=== PATIENT | male | born 1945 | race Caucasian/White ===

== ENCOUNTER 2019-02-09 23:36 | Inpatient (IN) | payer MEDICARE ==
[~2019-02-09] VITALS: Ht 177.8 cm; Wt 130.2 kg
[~2019-02-09 23:36] MED LIST: ALLO300T PO; AMLO1CAP7 PO; ATOR20TA37 PO; BENA20TA54 PO; CHOL2000 PO; DILT120C80 PO; FENO160T PO; METF500T17 PO; MULT-208 PO; OMEG1CAP48 PO; Oxygen INH; WARF1TAB PO
--- NOTE | 2019-02-10 00:44 | NUR ---
PT PRESENTS TO ED C/O A LUMP APPEARING TONIGHT "ALL OF A SUDDEN" AT 1700 W/ ASSOCIATED PAIN. STATES HX OF SIMILAR S/S FROM A HERNIA THAT WAS SURGICALLY REDUCED/REPAIRED. STATES PAIN IN LOWER QUADRANT BILATERAL. MONITORING APPLIED. CALL LIGHT WITHIN REACH. AWAITING MD ASSESSMENT.
[2019-02-10] MEDS ORDERED: HYDROmorphone 2 MG/ML, 1ML IVPush PRN (01:30)
[2019-02-10] MEDS ORDERED: ONDANSETRON 2MG/ML, 2ML IVPush ONE (01:30)
[2019-02-10] MEDS ORDERED: ONDANSETRON 2MG/ML, 2ML ONE ×2 (01:32→06:11)
[2019-02-10] MEDS ORDERED: HYDROmorphone 2 MG/ML, 1ML ONE ×2 (01:32→07:30)
[2019-02-10 01:43] LABS: BASOPHILS # (AUTO) 0.02 x10^3/uL (0-0.1); BASOPHILS % (AUTO) 0 % (0-1); EOSINOPHILS # (AUTO) 0.04 x10^3/uL (0-0.4); EOSINOPHILS % (AUTO) 1 % (1-7); LYMPHOCYTES # (AUTO) 0.95 x10^3/uL (1-3.4); LYMPHOCYTES % (AUTO) 11 % (22-44); MD NO; MEAN CORPUSCULAR HGB CONC 34.3 g/dL (33.2-36.2); MEAN CORPUSCULAR VOLUME 90.5 fL (81-97); MEAN PLATELET VOLUME 10.2 fL (7.4-10.4); MONOCYTES # (AUTO) 0.34 x10^3/uL (0.2-0.8); MONOCYTES % (AUTO) 4 % (2-9); NEUTROPHILS # (AUTO) 7.42 x10^3/uL (1.8-6.8); NEUTROPHILS % (AUTO) 85 % (42-75); PLATELET COUNT 139 x10^3/uL (130-400); RED CELL DISTRIBUTION WIDTH 14.8 % (9.4-14.8)
--- NOTE | 2019-02-10 01:53 | NUR ---
STATES A DECREASE IN PAIN AT THIS TIME. AWAITING LAB RESULTS FOR CT.
[2019-02-10 01:55] LABS: ALANINE AMINOTRANSFERASE 39 U/L (12-78); ALBUMIN 3.9 g/dL (3.4-5.0); ANION GAP 6 mmol/L (5-15); CALCIUM 9.2 mg/dL (8.5-10.1); CHLORIDE 109 mmol/L (98-107); CREATININE 1.14 mg/dL (0.7-1.3)
[2019-02-10 01:57] LABS: ALKALINE PHOSPHATASE 78 U/L (45-117); BILIRUBIN,TOTAL 0.7 mg/dL (0.2-1.0); TOTAL PROTEIN 7.1 g/dL (6.4-8.2)
--- NOTE | 2019-02-10 02:12 | NUR ---
Pt to CT at this time.
[2019-02-10 02:19] LABS: INTERNATIONAL NORMALIZED RATIO 1.06 (0.93-1.1); PROTHROMBIN TIME 11.1 Seconds (9.6-11.5)
[2019-02-10] MEDS ORDERED: OMNIPAQUE 350 MG/ML, 100ML BOTTLE ONE (02:39)
[2019-02-10] MEDS ORDERED: APIX5TAB PO (02:40)
--- NOTE | 2019-02-10 02:41 | NUR ---
SPO2 NOT FUNCTIONING APPROPRIATELY. THIS RN ATTEMPTED TO TROUBLESHOOT. STILL NOT WORKING. PORTABLE VITALS MACHINE PLACED AT BEDSIDE. PT GIVEN URINAL PRE REQUEST. NO FURTHER REQUESTS.
[2019-02-10] MEDS: SODIUM CHLORIDE 0.9% 1,000 ML IV SCH ×2 (03:29→09:36)
--- NOTE | 2019-02-10 03:29 | NUR ---
THIS RN GAVE REPORT TO OR NURSE. OR NURSE STATES PT TO BE PICKED UP APPROXIMATELY 415 AM.
[2019-02-10] MEDS ORDERED: morphine SULFATE 10 MG/ML, 1ML IVPush PRN (03:30)
[2019-02-10] MEDS ORDERED: ONDANSETRON 2MG/ML, 2ML IVPush PRN (03:30)
[2019-02-10] MEDS ORDERED: BUPIVACAINE/EPI 0.5% 1:200K ONE (04:12)
[2019-02-10] MEDS ORDERED: BACITRACIN 50,000 UNIT ONE (04:12)
[2019-02-10] MEDS ORDERED: FENTANYL PF 250 MCG/5ML ONE (05:03)
[2019-02-10] MEDS ORDERED: PHENYLEPHRINE 10 MG/ML ONE (05:10)
[2019-02-10] MEDS ORDERED: BUPIVACAINE/EPI 0.5% 1:200K INFIL ONE (05:27)
[2019-02-10] MEDS ORDERED: BACITRACIN 50,000 UNIT IRRIG ONE (05:47)
[2019-02-10] MEDS ORDERED: METOPROLOL 1 MG/ML, 5ML IV PRN (06:00)
[2019-02-10] MEDS ORDERED: PROMETHAZINE 25 MG/ML, 1ML IV PRN (06:00)
[2019-02-10] MEDS ORDERED: HALOPERIDOL 5 MG/ML IV PRN ×2 (06:00)
[2019-02-10] MEDS ORDERED: hydrALAzine 20 MG/ML, 1ML IV PRN (06:00)
[2019-02-10] MEDS ORDERED: DIPHENHYDRAMINE 50 MG/ML, 1ML IVPush PRN (06:00)
[2019-02-10] MEDS ORDERED: MEPERIDINE/PF 25MG/0.5ML IVPush PRN (06:00)
[2019-02-10] MEDS ORDERED: PROCHLORPERAZINE 5 MG/ML, 2ML IV PRN (06:00)
[2019-02-10] MEDS ORDERED: OXYcodone 5 MG/5 ML ORAL.SOL UDC PO PRN (06:00)
[2019-02-10] MEDS ORDERED: PROPOFOL 10 MG/ML, 20ML ONE (06:11)
[2019-02-10] MEDS ORDERED: SUCCINYLCHOLINE 20 MG/ML, 10ML ONE (06:11)
[2019-02-10] MEDS ORDERED: ROCURONIUM 10MG/ML,5ML ONE (06:11)
[2019-02-10] MEDS ORDERED: DEXAMETHASONE 4 MG/ML, 1ML ONE (06:11)
[2019-02-10] MEDS ORDERED: NEOSTIGMINE 1 MG/ML, 10ML ONE (06:11)
[2019-02-10] MEDS ORDERED: CEFAZOLIN 1,000 MG ONE (06:11)
[2019-02-10] MEDS ORDERED: GLYCOPYRROLATE 0.2MG/1ML, 5ML ONE (06:11)
[2019-02-10] MEDS ORDERED: FENTANYL PF 100 MCG/2ML ONE (06:34)
[2019-02-10] MEDS: FENTANYL PF 100 MCG/2ML IV PRN ×4 (06:35→07:05)
[2019-02-10] MEDS ORDERED: METOPROLOL 1 MG/ML, 5ML ONE (06:42)
[2019-02-10] MEDS: LABETALOL 5MG/ML, 20ML IV PRN ×2 (06:47→06:53)
[2019-02-10] MEDS ORDERED: OXYcodone 5 MG/5 ML ORAL.SOL UDC ONE (06:51)
[2019-02-10] MEDS: INSULIN LISPRO 100 UNITS/ML, PEN SQ-INSULIN SCH ×4 (07:00→20:47)
[2019-02-10] MEDS: HYDROmorphone 2 MG/ML, 1ML IVPush PRN ×2 (07:30→07:50)
[2019-02-10 09:00] VITALS: BP 122/80
[2019-02-10] MEDS: HYDROcodone/APAP 5/325 TABLET PO PRN ×5 (09:36→20:42)
[2019-02-10] MEDS ORDERED: METF500T27 PO (10:40)
[2019-02-10] MEDS: DILTIAZEM 120 MG CAP.ER.24H PO SCH (12:56)
[2019-02-10] MEDS: BENAZEPRIL 20 MG TABLET PO SCH (12:57)
[2019-02-10 14:00] VITALS: BP 142/79
[2019-02-10 19:04] VITALS: BP 151/89
[2019-02-10] MEDS: OMEGA-3/FISH OIL CAPSULE PO SCH (19:55)
[2019-02-10 20:39] VITALS: BP 139/78
[2019-02-10] MEDS: ATORVASTATIN 20 MG TABLET PO SCH (20:42)
[2019-02-11] MEDS: SODIUM CHLORIDE 0.9% 1,000 ML IV SCH ×3 (00:01→22:23)
[2019-02-11 00:22] VITALS: BP 116/75
[2019-02-11 05:05] LABS: BASOPHILS # (AUTO) 0.03 x10^3/uL (0-0.1); BASOPHILS % (AUTO) 0 % (0-1); EOSINOPHILS # (AUTO) 0.14 x10^3/uL (0-0.4); EOSINOPHILS % (AUTO) 2 % (1-7); LYMPHOCYTES # (AUTO) 1.51 x10^3/uL (1-3.4); LYMPHOCYTES % (AUTO) 20 % (22-44); MD NO; MEAN CORPUSCULAR HEMOGLOBIN 30.9 pg (27.5-34.5); MEAN CORPUSCULAR HGB CONC 34.1 g/dL (33.2-36.2); MEAN CORPUSCULAR VOLUME 90.7 fL (81-97); MEAN PLATELET VOLUME 9.8 fL (7.4-10.4); MONOCYTES # (AUTO) 0.64 x10^3/uL (0.2-0.8); MONOCYTES % (AUTO) 8 % (2-9); NEUTROPHILS # (AUTO) 5.38 x10^3/uL (1.8-6.8); NEUTROPHILS % (AUTO) 70 % (42-75); PLATELET COUNT 130 x10^3/uL (130-400); RED BLOOD COUNT 4.58 x10^6/uL (4.38-5.82); RED CELL DISTRIBUTION WIDTH 15.4 % (9.4-14.8)
[2019-02-11 05:13] LABS: ANION GAP 6 mmol/L (5-15); CHLORIDE 108 mmol/L (98-107)
[2019-02-11 06:50] VITALS: BP 111/69
[2019-02-11] MEDS: OMEGA-3/FISH OIL CAPSULE PO SCH (07:17)
[2019-02-11] MEDS: INSULIN LISPRO 100 UNITS/ML, PEN SQ-INSULIN SCH ×4 (07:25→20:20)
[2019-02-11] MEDS: ALLOPURINOL 300 MG TABLET PO SCH (09:29)
[2019-02-11] MEDS: BENAZEPRIL 20 MG TABLET PO SCH (09:29)
[2019-02-11] MEDS: DILTIAZEM 120 MG CAP.ER.24H PO SCH (09:29)
[2019-02-11] MEDS: CHOLECALCIFEROL 1,000 UNIT TABLET PO SCH (09:30)
[2019-02-11] MEDS: MULTIVITAMIN 1 TABLET PO SCH (09:30)
[2019-02-11] MEDS: KETOROLAC 30 MG/1 ML IVPush SCH ×3 (09:30→21:19)
[2019-02-11 15:24] VITALS: BP 126/77
[2019-02-11 19:07] VITALS: BP 127/70
[2019-02-11] MEDS: ATORVASTATIN 20 MG TABLET PO SCH (21:19)
[2019-02-12 01:48] VITALS: BP 124/80
[2019-02-12] MEDS: KETOROLAC 30 MG/1 ML IVPush SCH ×4 (03:41→21:03)
[2019-02-12 06:57] VITALS: BP 125/81
[2019-02-12] MEDS: INSULIN LISPRO 100 UNITS/ML, PEN SQ-INSULIN SCH ×4 (07:35→21:00)
[2019-02-12] MEDS: DILTIAZEM 120 MG CAP.ER.24H PO SCH (09:45)
[2019-02-12] MEDS: DOCUSATE 100 MG CAPSULE PO SCH ×2 (09:45→21:02)
[2019-02-12] MEDS: MULTIVITAMIN 1 TABLET PO SCH (09:46)
[2019-02-12] MEDS: CHOLECALCIFEROL 1,000 UNIT TABLET PO SCH (09:46)
[2019-02-12] MEDS: BENAZEPRIL 20 MG TABLET PO SCH (09:46)
[2019-02-12] MEDS: ALLOPURINOL 300 MG TABLET PO SCH (09:46)
[2019-02-12] MEDS: OMEGA-3/FISH OIL CAPSULE PO SCH ×2 (09:46→21:02)
[2019-02-12 12:53] VITALS: BP 117/81
[2019-02-12 19:34] VITALS: BP 130/84
[2019-02-12] MEDS: ATORVASTATIN 20 MG TABLET PO SCH (21:02)
[2019-02-13] MEDS: KETOROLAC 30 MG/1 ML IVPush SCH ×3 (03:07→15:30)
[2019-02-13 03:15] VITALS: BP 116/78
[2019-02-13] MEDS: INSULIN LISPRO 100 UNITS/ML, PEN SQ-INSULIN SCH ×3 (06:10→15:56)
[2019-02-13 08:34] VITALS: BP 115/75
[2019-02-13] MEDS: CHOLECALCIFEROL 1,000 UNIT TABLET PO SCH (08:42)
[2019-02-13] MEDS: ALLOPURINOL 300 MG TABLET PO SCH (08:43)
[2019-02-13] MEDS: BENAZEPRIL 20 MG TABLET PO SCH (08:43)
[2019-02-13] MEDS: OMEGA-3/FISH OIL CAPSULE PO SCH (08:43)
[2019-02-13] MEDS: MULTIVITAMIN 1 TABLET PO SCH (08:43)
[2019-02-13] MEDS: DOCUSATE 100 MG CAPSULE PO SCH (08:43)
[2019-02-13] MEDS: DILTIAZEM 120 MG CAP.ER.24H PO SCH (08:43)
[2019-02-13 12:50] VITALS: BP 144/75
[2019-02-13] MEDS ORDERED: SENNA/DOCUSATE TABLET PO SCH (14:30)
[2019-02-13] MEDS ORDERED: OXYC-302 PO (14:40)
[2019-02-13] MEDS ORDERED: DOCU-131 PO (14:40)
[2019-02-13] MEDS ORDERED: SENN-177 PO (14:40)
[2019-02-13 16:00] VITALS: BP 138/68
[2019-02-13] MEDS ORDERED: APIXABAN 5 MG TABLET PO SCH (21:00)
[2019-03-07] MEDS ORDERED: METR-90 PO (19:25)
[2019-03-07] MEDS ORDERED: CIPR500T3 PO (19:25)
[2019-03-07] MEDS ORDERED: METF500T17 PO (19:25)
== END 2019-02-13 16:47 | disposition home or self-care (01) | DRG 353 ==
LOC: ED 02-10 03:21 → EDIP 02-10 03:22 → 5SO 02-10 08:38 → 4NOR 02-12 12:42
PROVIDERS: ADMIT Internal Medicine; ATTEND Internal Medicine
PROC: 0WUF0JZ Supplement Abdominal Wall with Synthetic Substitute, Open Approach (ICD-10-PCS; principal; 2019-02-10 05:00)
DX: K43.0 Incisional hernia with obstruction, without gangrene (principal); N17.0 Acute kidney failure with tubular necrosis; D68.69 Other thrombophilia; E11.9 Type 2 diabetes mellitus without complications; E78.5 Hyperlipidemia, unspecified; I10 Essential (primary) hypertension; I48.2 Chronic atrial fibrillation; G47.33 Obstructive sleep apnea (adult) (pediatric); K22.70 Barrett's esophagus without dysplasia; M1A.9XX0 Chronic gout, unspecified, without tophus (tophi); Z79.01 Long term (current) use of anticoagulants; Z87.891 Personal history of nicotine dependence
CPT/HCPCS: 36415; 71045; 71046; 74177; 80048; 80053; 82962; 83690; 85025; 85610; 85730; 93005; 96374; 96375; C1729; G0378; J0690; J1100; J1170; J1885; J2405; J2704; J2710; J3010; Q9967; C1781; J0330; J2370; J7030

== ENCOUNTER 2019-03-04 23:49 | Emergency (ER) | payer MEDICARE ==
[~2019-03-04] VITALS: Ht 177.8 cm; Wt 122.4 kg
[~2019-03-04 23:49] MED LIST changes: +APIX5TAB PO; +DOCU-131 PO; +METF500T27 PO; +OXYC-302 PO; +SENN-177 PO
--- NOTE | 2019-03-05 00:23 | NUR ---
ASSUMED CARE OF PATIENT. PATIENT REPORTS NAUSEA AND LOWER CENTER ABD PAIN. PT HAD HERNIA SURGERY ON January AND REPORTS HE HIS HAVING PAIN WHERE HIS HERNIA REPAIR WAS. VS STABLE. PT HAS LOOSE STOOL THIS MORNING BUT IT HAS RESOLVED PER PATIENT. AT BEDSIDE. NO ACUTE DISTRESS NOTED. CALL LIGHT IN PLACE. WILL CONTINUE TO MONITOR.
[2019-03-05] MEDS ORDERED: SODIUM CHLORIDE FLUSH 10ML SYR IVF ONE (00:30)
[2019-03-05] MEDS ORDERED: ONDANSETRON 2MG/ML, 2ML IVPush ONE (00:30)
[2019-03-05] MEDS ORDERED: MORPHINE SULFATE 4 MG/ML, 1ML ONE ×2 (00:47→02:18)
[2019-03-05] MEDS ORDERED: ONDANSETRON 2MG/ML, 2ML ONE (00:47)
[2019-03-05 00:51] LABS: BASOPHILS # (AUTO) 0.02 x10^3/uL (0-0.1); BASOPHILS % (AUTO) 0 % (0-1); EOSINOPHILS # (AUTO) 0.14 x10^3/uL (0-0.4); EOSINOPHILS % (AUTO) 2 % (1-7); LYMPHOCYTES # (AUTO) 1.27 x10^3/uL (1-3.4); LYMPHOCYTES % (AUTO) 14 % (22-44); MD NO; MEAN CORPUSCULAR HEMOGLOBIN 30.1 pg (27.5-34.5); MEAN CORPUSCULAR HGB CONC 32.9 g/dL (33.2-36.2); MEAN CORPUSCULAR VOLUME 91.6 fL (81-97); MEAN PLATELET VOLUME 9.8 fL (7.4-10.4); MONOCYTES # (AUTO) 0.47 x10^3/uL (0.2-0.8); MONOCYTES % (AUTO) 5 % (2-9); NEUTROPHILS # (AUTO) 7.01 x10^3/uL (1.8-6.8); NEUTROPHILS % (AUTO) 79 % (42-75); PLATELET COUNT 157 x10^3/uL (130-400); RED BLOOD COUNT 5.18 x10^6/uL (4.38-5.82)
[2019-03-05] MEDS: MORPHINE SULFATE 4 MG/ML, 1ML IVPush PRN ×2 (00:52→02:23)
[2019-03-05 01:03] LABS: ALANINE AMINOTRANSFERASE 29 U/L (12-78); ALBUMIN 3.7 g/dL (3.4-5.0); ANION GAP 10 mmol/L (5-15); CALCIUM 9.2 mg/dL (8.5-10.1); CHLORIDE 108 mmol/L (98-107)
--- NOTE | 2019-03-05 01:03 | NUR ---
BEDSIDE REPORT GIVEN TO DAVE ESCALANTE
[2019-03-05 01:05] LABS: ALKALINE PHOSPHATASE 94 U/L (45-117); BILIRUBIN,TOTAL 0.6 mg/dL (0.2-1.0); CREATININE 1.21 mg/dL (0.7-1.3)
--- NOTE | 2019-03-05 01:07 | NUR ---
RECEIVED BS REPORT FROM DAVE BROWN TO ASSUME CARE OF PT. AT THIS TIME. PT. RESTING ON GURNEY IN SUPINE POSITION. PT. AWARE OF NEED FOR UA; URINAL AT BS. AWAITING CT. AT BS FOR SUPPORT. CONTINUOUS PULSE OX AND B/P MONIOTRS IN PLACE. 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 CALL LIGHT IN REACH. ALL SAFETY MEASURES OBSERVED.
--- NOTE | 2019-03-05 01:21 | NUR ---
PT. TO CT VIA [facility].
[2019-03-05] MEDS ORDERED: OMNIPAQUE 350 MG/ML, 100ML BOTTLE ONE (01:30)
--- NOTE | 2019-03-05 02:23 | NUR ---
PT. MEDICATED FOR CONTINUED 5/10 PAIN PER MAR AND PROVIDED WITH WATER AFTER OK FROM DR. THOMAS. REQUESTED PT. TO ATTEMPT UA AGAIN. DR. THOMAS NOW AT BS TO DISUCSS D/C PLAN WITH PT. AND .
[2019-03-05] MEDS ORDERED: CIPROFLOXACIN 500 MG TABLET ONE (02:25)
[2019-03-05] MEDS ORDERED: metroNIDAZOLE 500 MG TABLET ONE (02:25)
[2019-03-05] MEDS ORDERED: metroNIDAZOLE 500 MG TABLET PO ONE (02:30)
[2019-03-05] MEDS ORDERED: CIPROFLOXACIN 500 MG TABLET PO ONE (02:30)
[2019-03-05 02:58] VITALS: BP 134/80
[2019-03-07] MEDS ORDERED: METF500T17 PO (19:25)
[2019-03-07] MEDS ORDERED: METR-90 PO (19:25)
[2019-03-07] MEDS ORDERED: CIPR500T3 PO (19:25)
== END 2019-03-05 02:59 | disposition home or self-care (01) ==
LOC: ED 03-05 00:01
DX: K57.92 Diverticulitis of intestine, part unspecified, without perforation or abscess without bleeding (principal); I10 Essential (primary) hypertension; E78.5 Hyperlipidemia, unspecified; I48.91 Unspecified atrial fibrillation
CPT/HCPCS: 36415; 74177; 80053; 83690; 85025; 96374; 96375; 96376; 99284; J2405; Q9967; J2270

== ENCOUNTER 2019-08-17 00:52 | Inpatient (IN) | payer MEDICARE ==
[~2019-08-17] VITALS: Ht 180.3 cm; Wt 119.5 kg
[~2019-08-17 00:52] MED LIST changes: +AMLO1CAP42 PO; -AMLO1CAP7 PO; +CIPR500T3 PO; +CYAN100063 PO; +METR-90 PO
[2019-08-17] MEDS ORDERED: ACETAMINOPHEN 500 MG TABLET ONE (01:09)
[2019-08-17] MEDS ORDERED: ACETAMINOPHEN 500 MG TABLET PO ONE (01:30)
[2019-08-17] MEDS ORDERED: SODIUM CHLORIDE 0.9% 1,000ML IVBOLUS ONE ×2 (01:30→02:30)
[2019-08-17 01:34] LABS: BASOPHILS % (AUTO) 0 % (0-1); EOSINOPHILS # (AUTO) 0.05 x10^3/uL (0-0.4); EOSINOPHILS % (AUTO) 1 % (1-7); LYMPHOCYTES # (AUTO) 0.78 x10^3/uL (1-3.4); LYMPHOCYTES % (AUTO) 7 % (22-44); MD NO; MEAN CORPUSCULAR HEMOGLOBIN 31.1 pg (27.5-34.5); MEAN CORPUSCULAR HGB CONC 33.5 g/dL (33.2-36.2); MEAN CORPUSCULAR VOLUME 92.7 fL (81-97); MEAN PLATELET VOLUME 9.4 fL (7.4-10.4); MONOCYTES # (AUTO) 0.76 x10^3/uL (0.2-0.8); MONOCYTES % (AUTO) 7 % (2-9); NEUTROPHILS # (AUTO) 9.46 x10^3/uL (1.8-6.8); NEUTROPHILS % (AUTO) 86 % (42-75); PLATELET COUNT 139 x10^3/uL (130-400); RED BLOOD COUNT 5.26 x10^6/uL (4.38-5.82); RED CELL DISTRIBUTION WIDTH 15.4 % (9.4-14.8)
[2019-08-17 01:35] LABS: RAPID INFLUENZA A Negative (Negative); RAPID INFLUENZA B Negative (Negative)
[2019-08-17 01:47] LABS: ALBUMIN 3.1 g/dL (3.4-5.0); ANION GAP 6 mmol/L (5-15); CALCIUM 8.7 mg/dL (8.5-10.1); CHLORIDE 105 mmol/L (98-107)
[2019-08-17 01:49] LABS: MICROSCOPIC NOT IND
[2019-08-17 01:51] LABS: CULTURE INDICATED? NO
[2019-08-17 01:53] LABS: ALANINE AMINOTRANSFERASE 21 U/L (12-78); ALKALINE PHOSPHATASE 96 U/L (45-117); BILIRUBIN,TOTAL 1.2 mg/dL (0.2-1.0); TOTAL PROTEIN 7.1 g/dL (6.4-8.2); TROPONIN I < 0.015 ng/mL (0.000-0.045)
[2019-08-17] MEDS ORDERED: CEFTRIAXONE PMX 1GM/50ML 50 ML ONE (02:11)
[2019-08-17] MEDS ORDERED: SODIUM CHLORIDE 0.9% 1,000 ML IV ONE (02:17)
[2019-08-17] MEDS ORDERED: AZITHROMYCIN 500 MG in SODIUM CHLORIDE 0.9% 250 ML IV ONE (02:30)
[2019-08-17] MEDS ORDERED: CEFTRIAXONE PMX 1GM/50ML 50 ML IV ONE ×2 (02:30→07:00)
[2019-08-17 03:46] VITALS: BP 110/62
[2019-08-17 04:34] VITALS: BP 106/70
[2019-08-17] MEDS ORDERED: DILTIAZEM 5 MG/ML, 5ML IVPush ONE (06:00)
[2019-08-17] MEDS ORDERED: CEFTRIAXONE PMX 2GM/50ML 50 ML IV SCH (06:30)
[2019-08-17] MEDS ORDERED: ACETAMINOPHEN 325 MG TABLET PO PRN (06:30)
[2019-08-17] MEDS ORDERED: ONDANSETRON 2MG/ML, 2ML IVPush PRN (06:30)
[2019-08-17] MEDS ORDERED: morphine SULFATE 10 MG/ML, 1ML IVPush PRN (06:30)
[2019-08-17] MEDS ORDERED: LABETALOL 5MG/ML, 20ML IVPush PRN (06:30)
[2019-08-17] MEDS: INSULIN LISPRO 100 UNITS/ML, PEN SQ-INSULIN SCH ×4 (07:00→21:00)
[2019-08-17 07:10] VITALS: BP 122/74
[2019-08-17 07:30] LABS: FREE T4 (FREE THYROXINE) 1.3 ng/dL (0.76-1.46)
[2019-08-17] MEDS: DILTIAZEM 5 MG/ML, 5ML IVPush PRN ×2 (07:38→08:14)
[2019-08-17] MEDS: DILTIAZEM 120 MG CAP.ER.24H PO SCH (08:15)
[2019-08-17] MEDS: BENAZEPRIL 20 MG TABLET PO SCH (08:15)
[2019-08-17] MEDS: SENNA/DOCUSATE TABLET PO SCH (08:15)
[2019-08-17] MEDS: APIXABAN 5 MG TABLET PO SCH ×2 (08:18→21:19)
[2019-08-17 13:00] VITALS: BP 116/85
[2019-08-17] MEDS: GUAIFENESIN 200 MG TABLET PO SCH ×2 (16:32→21:19)
[2019-08-17] MEDS: AMPICILLIN/SULBACTAM 3 GM in SODIUM CHLORIDE 0.9% 100 ML IV SCH (18:55)
[2019-08-17 20:23] VITALS: BP 109/75
[2019-08-17] MEDS: ATORVASTATIN 20 MG TABLET PO SCH (21:19)
[2019-08-18] MEDS: AMPICILLIN/SULBACTAM 3 GM in SODIUM CHLORIDE 0.9% 100 ML IV SCH ×4 (00:06→18:26)
[2019-08-18 02:31] VITALS: BP 123/85
[2019-08-18 05:11] LABS: MEAN CORPUSCULAR HEMOGLOBIN 30.5 pg (27.5-34.5); MEAN CORPUSCULAR HGB CONC 33.1 g/dL (33.2-36.2); MEAN CORPUSCULAR VOLUME 92.1 fL (81-97); MEAN PLATELET VOLUME 9.1 fL (7.4-10.4); PLATELET COUNT 136 x10^3/uL (130-400); RED BLOOD COUNT 4.53 x10^6/uL (4.38-5.82); RED CELL DISTRIBUTION WIDTH 15.8 % (9.4-14.8)
[2019-08-18 05:14] LABS: ALBUMIN 2.5 g/dL (3.4-5.0); ANION GAP 6 mmol/L (5-15); CALCIUM 8.8 mg/dL (8.5-10.1); CHLORIDE 108 mmol/L (98-107)
[2019-08-18 05:20] LABS: ALANINE AMINOTRANSFERASE 16 U/L (12-78); ALKALINE PHOSPHATASE 74 U/L (45-117); CREATININE 0.91 mg/dL (0.7-1.3); TOTAL PROTEIN 6.1 g/dL (6.4-8.2)
[2019-08-18] MEDS: GUAIFENESIN 200 MG TABLET PO SCH ×4 (05:40→20:02)
[2019-08-18 05:52] LABS: BASOPHILS # (AUTO) 0.03 x10^3/uL (0-0.1); BASOPHILS % (AUTO) 0 % (0-1); EOSINOPHILS % (AUTO) 1 % (1-7); LYMPHOCYTES # (AUTO) 1.83 x10^3/uL (1-3.4); LYMPHOCYTES % (AUTO) 18 % (22-44); MD SCAN; MONOCYTES # (AUTO) 0.62 x10^3/uL (0.2-0.8); MONOCYTES % (AUTO) 6 % (2-9); NEUTROPHILS # (AUTO) 7.52 x10^3/uL (1.8-6.8); NEUTROPHILS % (AUTO) 74 % (42-75)
[2019-08-18] MEDS: AZITHROMYCIN 500 MG in SODIUM CHLORIDE 0.9% 250 ML IV SCH (06:22)
[2019-08-18] MEDS: INSULIN LISPRO 100 UNITS/ML, PEN SQ-INSULIN SCH ×4 (07:54→20:57)
[2019-08-18] MEDS: DILTIAZEM 120 MG CAP.ER.24H PO SCH (08:34)
[2019-08-18] MEDS: SENNA/DOCUSATE TABLET PO SCH (08:35)
[2019-08-18] MEDS: BENAZEPRIL 20 MG TABLET PO SCH (08:35)
[2019-08-18] MEDS: APIXABAN 5 MG TABLET PO SCH ×2 (08:35→20:02)
[2019-08-18 08:48] VITALS: BP 117/83
[2019-08-18 14:08] VITALS: BP 120/86
[2019-08-18] MEDS: GUAIFENESIN/DM 200-20MG, 10ML UDC PO PRN (14:44)
[2019-08-18] MEDS: ATORVASTATIN 20 MG TABLET PO SCH (20:02)
[2019-08-18 20:10] VITALS: BP 138/83
[2019-08-19 00:17] VITALS: BP 110/72
[2019-08-19] MEDS: AMPICILLIN/SULBACTAM 3 GM in SODIUM CHLORIDE 0.9% 100 ML IV SCH ×4 (01:00→18:30)
[2019-08-19 05:30] LABS: BASOPHILS # (AUTO) 0.02 x10^3/uL (0-0.1); BASOPHILS % (AUTO) 0 % (0-1); EOSINOPHILS # (AUTO) 0.18 x10^3/uL (0-0.4); EOSINOPHILS % (AUTO) 2 % (1-7); LYMPHOCYTES # (AUTO) 1.96 x10^3/uL (1-3.4); LYMPHOCYTES % (AUTO) 24 % (22-44); MD NO; MEAN CORPUSCULAR HEMOGLOBIN 30.7 pg (27.5-34.5); MEAN CORPUSCULAR HGB CONC 33.2 g/dL (33.2-36.2); MEAN CORPUSCULAR VOLUME 92.3 fL (81-97); MEAN PLATELET VOLUME 9.1 fL (7.4-10.4); MONOCYTES # (AUTO) 0.56 x10^3/uL (0.2-0.8); MONOCYTES % (AUTO) 7 % (2-9); NEUTROPHILS # (AUTO) 5.63 x10^3/uL (1.8-6.8); NEUTROPHILS % (AUTO) 67 % (42-75); PLATELET COUNT 154 x10^3/uL (130-400); RED BLOOD COUNT 4.67 x10^6/uL (4.38-5.82); RED CELL DISTRIBUTION WIDTH 15.3 % (9.4-14.8)
[2019-08-19 05:34] LABS: ALBUMIN 2.5 g/dL (3.4-5.0); ANION GAP 7 mmol/L (5-15); CALCIUM 8.8 mg/dL (8.5-10.1); CHLORIDE 106 mmol/L (98-107)
[2019-08-19 05:39] LABS: ALANINE AMINOTRANSFERASE 21 U/L (12-78); ALKALINE PHOSPHATASE 78 U/L (45-117); BILIRUBIN,TOTAL 0.6 mg/dL (0.2-1.0); CREATININE 0.91 mg/dL (0.7-1.3); TOTAL PROTEIN 6.5 g/dL (6.4-8.2)
[2019-08-19] MEDS: GUAIFENESIN 200 MG TABLET PO SCH ×4 (06:00→21:00)
[2019-08-19 06:29] VITALS: BP 127/88
[2019-08-19] MEDS: AZITHROMYCIN 500 MG in SODIUM CHLORIDE 0.9% 250 ML IV SCH (06:30)
[2019-08-19] MEDS: INSULIN LISPRO 100 UNITS/ML, PEN SQ-INSULIN SCH ×4 (07:54→21:00)
[2019-08-19] MEDS: SENNA/DOCUSATE TABLET PO SCH (07:54)
[2019-08-19] MEDS: BENAZEPRIL 20 MG TABLET PO SCH (08:32)
[2019-08-19] MEDS: DILTIAZEM 120 MG CAP.ER.24H PO SCH (08:33)
[2019-08-19] MEDS: APIXABAN 5 MG TABLET PO SCH ×2 (08:33→21:00)
[2019-08-19] MEDS: GUAIFENESIN/DM 200-20MG, 10ML UDC PO PRN (08:33)
[2019-08-19 12:15] VITALS: BP 138/81
[2019-08-19 19:02] VITALS: BP 122/79
[2019-08-19] MEDS: ATORVASTATIN 20 MG TABLET PO SCH (21:00)
[2019-08-20 02:19] VITALS: BP 135/98
[2019-08-20] MEDS: AMPICILLIN/SULBACTAM 3 GM in SODIUM CHLORIDE 0.9% 100 ML IV SCH ×2 (05:45)
[2019-08-20 06:08] LABS: BASOPHILS # (AUTO) 0.05 x10^3/uL (0-0.1); BASOPHILS % (AUTO) 1 % (0-1); EOSINOPHILS # (AUTO) 0.17 x10^3/uL (0-0.4); EOSINOPHILS % (AUTO) 3 % (1-7); LYMPHOCYTES # (AUTO) 1.63 x10^3/uL (1-3.4); LYMPHOCYTES % (AUTO) 28 % (22-44); MD NO; MEAN CORPUSCULAR HGB CONC 33.2 g/dL (33.2-36.2); MEAN CORPUSCULAR VOLUME 93.5 fL (81-97); MONOCYTES % (AUTO) 7 % (2-9); NEUTROPHILS # (AUTO) 3.54 x10^3/uL (1.8-6.8); NEUTROPHILS % (AUTO) 61 % (42-75); PLATELET COUNT 169 x10^3/uL (130-400); RED BLOOD COUNT 4.94 x10^6/uL (4.38-5.82); RED CELL DISTRIBUTION WIDTH 15.1 % (9.4-14.8)
[2019-08-20 06:20] LABS: CHLORIDE 110 mmol/L (98-107)
[2019-08-20] MEDS: GUAIFENESIN 200 MG TABLET PO SCH (06:22)
[2019-08-20] MEDS: AZITHROMYCIN 500 MG in SODIUM CHLORIDE 0.9% 250 ML IV SCH (06:22)
[2019-08-20 06:25] LABS: ANION GAP 6 mmol/L (5-15); CALCIUM 8.8 mg/dL (8.5-10.1); CREATININE 0.92 mg/dL (0.7-1.3)
[2019-08-20 07:02] VITALS: BP 135/86
[2019-08-20] MEDS: INSULIN LISPRO 100 UNITS/ML, PEN SQ-INSULIN SCH (07:47)
[2019-08-20] MEDS: APIXABAN 5 MG TABLET PO SCH (07:47)
[2019-08-20] MEDS: SENNA/DOCUSATE TABLET PO SCH (07:47)
[2019-08-20] MEDS: DILTIAZEM 120 MG CAP.ER.24H PO SCH (07:47)
[2019-08-20] MEDS: BENAZEPRIL 20 MG TABLET PO SCH (07:47)
[2019-08-20] MEDS ORDERED: GUAI200T37 PO (10:28)
[2019-08-20] MEDS ORDERED: DOXY100C2 PO (10:28)
[2019-08-20] MEDS ORDERED: AMOX1TAB64 PO (10:28)
== END 2019-08-20 11:35 | disposition home health service (06) | DRG 871 ==
LOC: ED 02:14 → EDIP 02:17 → 4EST 03:13 → DCLOUNGE 08-20 11:30
PROVIDERS: ADMIT Family Medicine; ATTEND Hospitalist
DX: A41.9 Sepsis, unspecified organism (principal); J15.9 Unspecified bacterial pneumonia; J96.10 Chronic respiratory failure, unspecified whether with hypoxia or hypercapnia; I48.20 Chronic atrial fibrillation, unspecified; D68.69 Other thrombophilia; J44.1 Chronic obstructive pulmonary disease with (acute) exacerbation; J44.0 Chronic obstructive pulmonary disease with (acute) lower respiratory infection; M1A.9XX0 Chronic gout, unspecified, without tophus (tophi); I10 Essential (primary) hypertension; E11.9 Type 2 diabetes mellitus without complications; E78.5 Hyperlipidemia, unspecified; W06.XXXA Fall from bed, initial encounter; Y93.89 Activity, other specified; Y99.8 Other external cause status; Y92.003 Bedroom of unspecified non-institutional (private) residence as the place of occurrence of the external cause; Z96.651 Presence of right artificial knee joint; Z87.891 Personal history of nicotine dependence; Z99.81 Dependence on supplemental oxygen; Z90.49 Acquired absence of other specified parts of digestive tract
CPT/HCPCS: 36415; 70450; 71045; 80048; 80053; 81003; 82962; 83036; 83605; 83735; 83880; 84100; 84145; 84439; 84443; 84484; 85025; 85379; 87040; 87070; 87205; 87400; 93005; 93306; 94660; 96360; 99285; G0378; J0295; J0456; J0696; J1815; J2270; J7030; J7050

== ENCOUNTER → 2019-10-15 | Outpatient (CLI) | payer MEDICARE ==
[~2019-10-15] MED LIST changes: +AMOX1TAB64 PO; +DOXY100C2 PO; +GUAI200T37 PO
== END | disposition home or self-care (01) ==
LOC: CFH 10:36
PROVIDERS: ATTEND Nurse Practitioner Family
DX: J18.9 Pneumonia, unspecified organism (principal)
CPT/HCPCS: 71046

== ENCOUNTER 2021-02-02 21:07 | Emergency (ER) | payer MEDICARE ==
[~2021-02-02] VITALS: Ht 177.8 cm; Wt 120.0 kg
[~2021-02-02 21:07] MED LIST changes: -CIPR500T3 PO; +CIPR500T4 PO; -OXYC-302 PO; +OXYC1TAB14 PO; -WARF1TAB PO; +WARF1TAB2 PO
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
--- NOTE | 2021-02-02 21:49 | NUR ---
bedside report from Kanchan ACOSTA, pt care transferred at this time. pt nad, resting on gurney, appears comfortable, no change in condition at this time. bed in lowest, rails engaged, call light on lap, provided warm blankets for comfort, wctm. waiting for ct. family at
--- NOTE | 2021-02-02 21:52 | NUR ---
BEDSIDE REPORT GIVEN TO DAVE FRANCE.
[2021-02-02] MEDS ORDERED: ONDANSETRON ODT 4 MG ONE (22:29)
[2021-02-02] MEDS ORDERED: HYDROcodone/APAP 5/325 TABLET ONE (22:30)
[2021-02-02] MEDS ORDERED: ONDANSETRON ODT 4 MG PO ONE (22:30)
[2021-02-02] MEDS ORDERED: HYDROcodone/APAP 5/325 TABLET PO ONE (22:30)
[2021-02-02 23:35] VITALS: BP 118/92
--- NOTE | 2021-02-02 23:35 | NUR ---
Patient given discharge instructions and they have confirmed that they understand the instructions. Patient ambulatory with steady gait. NAD, DENIES ADDITIONAL QUESTIONS OR NEEDS, NO PERSONAL BELONGINGS LEFT IN ROOM AFTER DC.
== END 2021-02-03 | disposition home or self-care (01) ==
LOC: ED 21:29
DX: S06.0X0A Concussion without loss of consciousness, initial encounter (principal); S00.83XA Contusion of other part of head, initial encounter; S00.31XA Abrasion of nose, initial encounter; I10 Essential (primary) hypertension; E11.9 Type 2 diabetes mellitus without complications; E78.5 Hyperlipidemia, unspecified; I48.91 Unspecified atrial fibrillation; Z87.891 Personal history of nicotine dependence; W01.0XXA Fall on same level from slipping, tripping and stumbling without subsequent striking against object, initial encounter; Y93.89 Activity, other specified; Y92.89 Other specified places as the place of occurrence of the external cause; Y99.8 Other external cause status
CPT/HCPCS: 70450; 70486; 72125; 99285; Q0162; 99283